=== PATIENT | female | born 1995 | race Caucasian/White ===

== ENCOUNTER 2022-04-19 13:17 | Emergency (ER) | payer OTHER, SELFPAY ==
--- NOTE | 2022-04-19 13:20 | ED.URI ---
HPI - URI/Sore Throat General Chief Complaint: Upper Respiratory Infection Stated Complaint: Sore Throat Time Seen by Provider: 04/19/22 13:19 Source: patient Mode of arrival: ambulatory Limitations: no limitations History of Present Illness HPI Narrative: Magi is a 26-year-old female patient presenting to the clinic today with complaints of sore throat, nasal congestion, and cough x1 day. She also reports low-grade fever. She is currently 5 weeks . MD elicited complaint: sore throat and nasal congestion Related Data Home Medications Medication Instructions Recorded Confirmed escitalopram oxalate 10 mg tablet 10 mg PO DAILY 04/19/22 04/19/22 levothyroxine 50 mcg tablet 50 mcg PO DAILY 04/19/22 04/19/22 metoprolol succinate 25 mg 25 mg PO DAILY 04/19/22 04/19/22 tablet,extended release 24 hr venlafaxine 150 mg 150 mg PO DAILY 04/19/22 04/19/22 capsule,extended release 24 hr Allergies Allergy/AdvReac Type Severity Reaction Status Date / Time No Known Allergies Allergy Verified 04/19/22 13:25 Review of Systems Review of Systems: Pertinent positives per HPI. Patient denies any rash, headache, visual changes, dizziness, shortness of breath, chest pain, palpitations, nausea, vomiting, diarrhea, constipation, abdominal pain, or any urinary issues. PMFSH Comments At the time of my signature, I reviewed and agree with the nursing past medical, surgical, social, and family history. There is no relevant family history pertinent to the patient complaint. Exam Narrative: General: Well-developed, well nourished, in no apparent distress Head: Normocephalic, atraumatic Eyes: Pupils equally round and reactive to light bilaterally, EOM intact, sclera and conjunctive clear, no discharge, lids normal Ears: TMs intact and clear, ear canals clear, no drainage, grossly hearing normal. Nose: Nares patent, clear nasal discharge, no inflammation, no sinus tenderness. Mouth: Oral pharynx without lesions or masses, good dentition, MMM. Oropharynx red with bilateral tonsillar swelling with exudate Neck: Supple, trachea midline, enlargement of anterior cervical nodes, no thyroid masses or goiter palpable. Cardio: Regular rate and rhythm, s1 and s2 normal, no murmur appreciated. Resp: Clear to auscultation bilaterally, no rhonchi, rales, wheezing or rubs Course Course Emergency Course: Portions of this record may have been created with voice recognition software. Level of Care: Express Care Visit Vital Signs Vital signs: Vital Signs Temperature 36.4 C 04/19/22 13:30 Pulse Rate 122 H 04/19/22 13:30 Respiratory Rate 16 04/19/22 13:30 Blood Pressure 122/83 04/19/22 13:30 Pulse Oximetry 100 04/19/22 13:30 Oxygen Delivery Room Air 04/19/22 13:30 Temperature 36.4 C 04/19/22 13:30 Pulse Rate 122 H 04/19/22 13:30 Respiratory Rate 16 04/19/22 13:30 Blood Pressure 122/83 04/19/22 13:30 Pulse Oximetry 100 04/19/22 13:30 Oxygen Delivery Room Air 04/19/22 13:30 Vital signs reviewed MDM - URI/Sore Throat MDM Narrative Medical decision making narrative: At the time of visit patient is resting comfortably on the exam table. Strep screen was obtained and was positive in the clinic today. Prescription for amoxicillin was sent to the pharmacy and supportive measures were discussed with the patient she voiced understanding of discharge instructions and agrees to the treatment plan. Differential Diagnosis Differential diagnosis: Likely upper respiratory infection, otitis media, sinusitis, viral infection, bronchitis, influenza, pharyngitis and other (COVID) Lab Data Labs: Strep Screen Positive Group A Strep *(Reference Range: Negative)* Discharge Plan Discharge Clinical Impression: Strep pharyngitis Patient Disposition: Home, Self-Care Condition: Stable Instructions: Antibiotic Form, Strep Throat (ED) Ricky
[2022-04-19 13:30] VITALS: BP 122/83; PULSE 122; RESP 16; TEMP 36.4; O2SAT 100
== END 2022-04-19 14:15 | disposition home or self-care (01) ==
PROVIDERS: Emergency Provider Nurse Practitioner Family
DX: J02.0 Streptococcal pharyngitis (principal); I10 Essential (primary) hypertension; E03.9 Hypothyroidism, unspecified; F41.9 Anxiety disorder, unspecified; F32.A Depression, unspecified
CPT/HCPCS: 87880; 99203; G0463

== ENCOUNTER 2022-05-04 18:48 | Emergency (ER) | payer OTHER, SELFPAY ==
[2022-05-04 19:00] VITALS: BP 135/73; PULSE 98; RESP 18; TEMP 36.3; O2SAT 100
--- NOTE | 2022-05-04 19:12 | ED.URI ---
HPI - URI/Sore Throat General Chief Complaint: Upper Respiratory Infection Stated Complaint: sorethroat Source: patient Mode of arrival: ambulatory Limitations: no limitations History of Present Illness HPI Narrative: 26-year-old female presents to [facility] complains of sore throat for the past 2 days. 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 Patient was evaluated here on 04/19/2022 and was diagnosed with strep throat at that time and was prescribed 10 days of amoxicillin. Patient reports that her symptoms resolved and then quickly returned. Patient is currently 7 and half weeks . Patient denies abdominal cramping or vaginal bleeding. Patient has been taking [id number] Tylenol and completing warm saltwater gargles with little relief MD elicited complaint: sore throat Onset (ago): day(s) (2) Severity: mild Able to tolerate fluids by mouth: Yes Exacerbating factors: swallowing Relieving factors: nothing Context: sick contacts Associated symptoms: denies other symptoms Treatments prior to arrival: acetaminophen Related Data Home Medications Medication Instructions Recorded Confirmed escitalopram oxalate 10 mg tablet 10 mg PO DAILY 04/19/22 05/04/22 levothyroxine 50 mcg tablet 50 mcg PO DAILY 04/19/22 05/04/22 metoprolol succinate 25 mg 25 mg PO DAILY 04/19/22 05/04/22 tablet,extended release 24 hr Allergies Allergy/AdvReac Type Severity Reaction Status Date / Time No Known Allergies Allergy Verified 04/19/22 13:25 Review of Systems Constitutional: Constitutional: Denies chills, Denies fatigue, Denies fever(s) and Denies weakness ENT: Denies vertigo, Denies dizziness, Denies epistaxis, Denies nasal congestion and Reports sore throat Cardiovascular: Cardiovascular: Denies chest pain Respiratory: Respiratory: Denies cough, Denies dyspnea and Denies wheezing Gastrointestinal: Gastrointestinal: Denies diarrhea, Denies nausea and Denies vomiting Integumentary/Breasts: Skin/Breast: Denies rash Allergic/Immunologic: Allergic/Immunologic: Denies lip swelling, Denies throat swelling, Denies tongue swelling and Denies wheezing PMFSH Comments At time of signature, I agree with nursing past medical, surgical, social and family history. There is no relevant family history pertinent to the presenting complaint. Exam Const: General: healthy appearing and no acute distress Nutritional Appearance: well nourished Orientation/consciousness: patient oriented x3 Limitations: no limitations HENMT: Head: normal to inspection Ears: external ears normal, TM's normal bilaterally and EAC's normal Face/Nose/Sinus: Normal external nose present Face and sinus: normal facial exam Mouth: Yes Normal oral and palatal mucosa present Teeth and gingiva: dentition normal Throat: uvula midline Other: Mild erythema and swelling noted to bilateral tonsils. There is no exudate or peritonsillar abscess Eyes: Conjunctivae: conjunctivae normal Neck: Neck: normal visual inspection Resp: Effort & Inspection: normal respiratory effort and not labored Auscultation: clear to auscultation bilaterally, no crackles, no rales, no rhonchi and no wheezes Cardio: Rate: regular rate Rhythm: regular rhythm Heart sounds: no murmurs Skin: General skin exam: normal color Rashes: no rashes Neuro: General: patient oriented x3 Speech: normal speech Gait exam (Neuro): Normal gait present Psych: Affect: normal affect Attitude: cooperative Course Course Level of Care: Express Care Visit Vital Signs Vital signs: Vital Signs Temperature 36.3 C L 05/04/22 19:00 Pulse Rate 98 05/04/22 19:00 Respiratory Rate 18 05/04/22 19:00 Blood Pressure 135/73 05/04/22 19:00 Pulse Oximetry 100 05/04/22 19:00 Oxygen Delivery Room Air 05/04/22 19:00 Temperature 36.3 C L 05/04/22 19:00 Pulse Rate 98 05/04/22 19:00 Respiratory Rate 18 05/04/22 19:00 Blood
== END 2022-05-04 19:24 | disposition home or self-care (01) ==
PROVIDERS: Emergency Provider Nurse Practitioner Family
DX: J02.0 Streptococcal pharyngitis (principal); I10 Essential (primary) hypertension; E03.9 Hypothyroidism, unspecified; F41.9 Anxiety disorder, unspecified; F32.A Depression, unspecified
CPT/HCPCS: 87880; 99213; G0463

== ENCOUNTER 2023-01-16 13:00 | Observation (INO) | payer OTHER, SELFPAY ==
[2023-01-16] VITALS (16 sets, daily range): BP systolic 116–128; BP diastolic 73–89; PULSE 70–114; O2SAT 86–100
--- NOTE | 2023-01-16 13:18 | PC.NURSE ---
1315: RN called OB. Dr. Smith ordered LR @125 ml/hr, IV zofran, and labs.
[2023-01-16] MEDS: ONDANSETRON INJ 4 MG/2 ML VIAL IV PUSH (14:10)
[2023-01-16] MEDS: LACTATED RINGERS 1,000 ML 125 ML IV CONT (14:12)
[2023-01-16 14:18] LABS: Hematocrit 41.7 % (37.0-47.0); Hemoglobin 13.4 g/dL (12.0-15.0); Mean Corpuscular HGB Conc 32.1 g/dl (32-36); Mean Corpuscular Hemoglobin 28.8 pg (26-34); Mean Corpuscular Volume 89.7 fl (80-100); Mean Platelet Volume 9.9 fl (7.4-10.4); Platelet Count Result 270 k/mm3 (150-375); Red Blood Count 4.65 M/mm3 (4.2-5.4); Red Cell Distribution Width 12.8 % (11.5-14.5); White Blood Count 8.3 K/mm3 (4.5-10.0)
[2023-01-16 15:08] LABS: Alanine Aminotransferase 21 U/L (6-35); Albumin Level 4.2 g/dL (3.5-5.1); Alkaline Phosphatase 41 U/L (38-126); Anion Gap 8 mmol/L (8-16); Aspartate Amino Transferase 25 U/L (14-36); Bilirubin,Total 0.5 mg/dL (0.2-1.3); Blood Urea Nitrogen 7 mg/dL (7-17); Carbon Dioxide 25 mmol/L (22-30); Chloride 102 mmol/L (98-107); Estimated Glomerular Filt Rate > 60; Glucose 87 mg/dL (65-110); Potassium 3.9 mmol/L (3.4-5.0); Sodium 135 mmol/L (137-145)
--- NOTE | 2023-01-16 16:38 | OBADM ---
This patient, Magi Crawford, admitted to the OB room OB Post 117 for observation. Patient/family oriented to hospital policies and general routines including ID bracelet, bed and alarms, visiting hours, pain management, procedures, bathroom and other care routines, personal items, smoking policy, room service/diet, and visiting hours. Patient/Family are encouraged to report perceived risks to care and to ask questions if they do not understand what they are told or what they should do.
--- NOTE | 2023-01-16 16:42 | PC.NURSE ---
1300: Patient arrived on unit vomiting. Patient stated she has not been able to keep any food or water down the past couple days and feels very nauseous and week.
--- NOTE | 2023-01-16 16:44 | PC.NURSE ---
1630: Patient states she feels better since receiving IV fluids and Zofran and has been able to keep her water and crackers down without feeling nauseous. Patient states she would like to go home. 1632: RN phone OB to report that patient has been able to keep food and water down and feels better after 800 ml of LR. OB stated he will send a prescription of PO Zofran to the pharmacy on file. Orders to discharge patient home with instruction on when to return to the hospital and how to take her Zofran at home.
--- NOTE | 2023-02-07 21:43 | PM.OBTRLD ---
OB - Triage/Final Diagnosis Visit Information Comments/Additional reasons for admission: I have assessed the risk for this patient, Magi Crawford, and determined that she would benefit from observation care. Evaluation Laboratory results: Laboratory Tests 01/16/23 01/16/23 13:27 14:35 WBC 8.3 RBC 4.65 Hgb 13.4 Hct 41.7 MCV 89.7 MCH 28.8 MCHC 32.1 RDW 12.8 Plt Count 270 MPV 9.9 Sodium 135 L Potassium 3.9 Chloride 102 Carbon Dioxide 25 Anion Gap 8 BUN 7 Creatinine 0.50 L Estim Creat Clear Calc Not Reportable Estimated GFR > 60 Glucose 87 Calcium 9.0 Total Bilirubin 0.5 AST 25 ALT 21 Alkaline Phosphatase 41 Total Protein 7.0 Albumin 4.2 Final Diagnosis (1) Nausea and vomiting: Code(s): R11.2 - Nausea with vomiting, unspecified Status: Acute
== END 2023-01-16 16:58 | disposition home or self-care (01) ==
PROVIDERS: Admitting Provider Obstetrics & Gynecology; Visit Provider Obstetrics & Gynecology
DX: O21.9 Vomiting of pregnancy, unspecified (principal); Z3A.00 Weeks of gestation of pregnancy not specified
CPT/HCPCS: 36415; 80053; 85027; 96374; G0378; G0379; J2405; J7120

== ENCOUNTER 2023-04-26 14:36 | Outpatient (CLI) | payer OTHER, SELFPAY ==
--- NOTE | 2023-04-29 08:38 | WPDHOLTEREM ---
Holter/Event Monitor Holter/Event Monitor Date of procedure: 04/26/23 Holter/Event Procedure: 24 Hr Holter Monitor Indications: Palpitations Conclusion: 1. 24 hour holter monitor on 04/26/23. 2. Underlying rhythm is sinus rhythm. HR range 60-171 bpm; average 95 bpm. HR at 171 bpm was at 17:22. 3. No premature supraventricular complexes. No supraventricular tachycardia. 4. No premature ventricular complexes. No ventricular tachycardia. 5. No sinoatrial or atrioventricular blocks. No significant pauses greater than 2 seconds. 6. No symptoms available for correlation.
== END 2023-04-26 14:37 | disposition home or self-care (01) ==
LOC: ANHCARD 14:39
PROVIDERS: Visit Provider Obstetrics & Gynecology
DX: R00.2 Palpitations (principal)
CPT/HCPCS: 93225; 93226

== ENCOUNTER 2023-08-18 16:42 | Outpatient (CLI) | payer OTHER, SELFPAY ==
[2023-08-18] VITALS (14 sets, daily range): BP systolic 108–136; BP diastolic 82–97; PULSE 78–135; BMI 31.8
[2023-08-18 17:32] LABS: Basophils Percent Auto 0.4 % (0.2-1.2); Eosinophils Absolute Auto 0.2 K/mm3 (0-0.3); Eosinophils Percent Auto 1.7 % (0-4.4); Hematocrit 35.4 % (37.0-47.0); Hemoglobin 11.5 g/dL (12.0-15.0); Immature Granulocyte Absolute 0.03 K/mm3 (0.00-0.031); Immature Granulocyte Percent A 0.3 % (0-0.5); Lymphocytes Absolute Auto 2.79 K/mm3 (0.9-3.2); Lymphocytes Percent Auto 27.1 % (18.3-44.2); Mean Corpuscular HGB Conc 32.5 g/dl (32-36); Mean Corpuscular Volume 89.4 fl (80-100); Mean Platelet Volume 11.2 fl (7.4-10.4); Monocytes Absolute Auto 0.7 K/mm3 (0.1-0.6); Monocytes Percent Auto 6.7 % (2.6-8.5); Neutrophils Absolute Auto 6.6 K/mm3 (1.3-6.7); Neutrophils Percent Auto 63.8 % (45.5-73.1); Platelet Count Result 209 k/mm3 (150-375); Red Blood Count 3.96 M/mm3 (4.2-5.4); Red Cell Distribution Width 13.3 % (11.5-14.5); White Blood Count 10.3 K/mm3 (4.5-10.0)
[2023-08-18 17:33] LABS: Appearance Urine Cloudy (Clear); Bacteria Urine None Seen /hpf; Bilirubin Urine Negative (Negative); Blood Urine Negative (Negative); Color Urine Yellow (Yellow); Glucose Urine UA Negative (Negative); Ketones Urine Negative (Negative); Leukocyte Esterase Ur Trace LEU/UL (Negative); Nitrate Urine Negative (Negative); Non Pathogenic Casts 0-2; Protein Urine 1+ mg/dL (Negative); RBC Urine 0-2 /hpf (0-2); Specific Grav Ur 1.013 (1.001-1.035); Squamous Epithelial Cell Urine Occasional /hpf (Few); Urobilinogen Urine 0.2 mg/dL (<2.0); WBC Urine 0-5 /hpf (0-3)
[2023-08-18 17:42] LABS: Alanine Aminotransferase 11 U/L (6-35); Albumin Level 3.7 g/dL (3.5-5.1); Alkaline Phosphatase 171 U/L (38-126); Anion Gap 5 mmol/L (4-12); Aspartate Amino Transferase 24 U/L (14-36); Bilirubin,Total 0.4 mg/dL (0.2-1.3); Blood Urea Nitrogen 4 mg/dL (7-17); Calcium 9.6 mg/dL (8.4-10.2); Carbon Dioxide 22 mmol/L (22-30); Chloride 106 mmol/L (98-107); Estimated Glomerular Filt Rate > 60; Glucose 85 mg/dL (65-110); Potassium 3.9 mmol/L (3.4-5.0); Sodium 133 mmol/L (137-145); Uric Acid 6.2 mg/dL (2.5-7.5)
[2023-08-18 17:45] LABS: Add Urine Microscopic? YES
[2023-08-18 18:24] LABS: Creatinine Urine 93.2 mg/dL; Total Protein Urine Random 27 mg/dL; Ur Ttl Prot Creatinine Ratio 0.29 mg/mg (0-0.20)
--- NOTE | 2023-08-18 18:24 | PC.NURSE ---
Dr. Mcgill notified of NST, lab results, and vital signs. Give 1g tylenol for headache.
[2023-08-18] MEDS: ACETAMINOPHEN 500 MG TABLET 1000 MG PO (19:07)
--- NOTE | 2023-08-18 20:05 | PC.NURSE ---
Dr. Mcgill called and updated on patient status. informed of patient stating that the Tylenol was not effectively managing her pain and that the patient is having acid reflux. MD also updated that patient stated that she has a history of migraines prior to . New orders received for PO Reglan.
[2023-08-18] MEDS: METOCLOPRAMIDE HCL 10 MG/10 ML SOLN UDC PO (20:28)
--- NOTE | 2023-08-18 21:05 | PC.NURSE ---
Patient states that she would like to go home. She states that the headache is still occurring and the acid reflux has not gotten better since eating and taking the Reglan. Patient states that she takes all of her medication at night and that acid reflux is a normal occurrence.
--- NOTE | 2023-08-18 21:12 | PC.NURSE ---
Called Dr. Mcgill to update that the patient is continuing to have a headache and acid reflux. Patient stated that she would like to go home because this is a normal occurrence at night for her. New orders received to discharge patient.
== END 2023-08-18 21:45 | disposition home or self-care (01) ==
LOC: ANHOBOP 16:45 → ANHLDR 16:45
PROVIDERS: Visit Provider Obstetrics & Gynecology
DX: O13.9 Gestational [pregnancy-induced] hypertension without significant proteinuria, unspecified trimester (principal); Z3A.00 Weeks of gestation of pregnancy not specified
CPT/HCPCS: 36415; 59025; 80053; 81001; 82570; 84156; 84550; 85025; 99199; A9270

== ENCOUNTER 2023-08-22 18:37 | Inpatient (IN) | payer OTHER, SELFPAY ==
[2023-08-22] VITALS (10 sets, daily range): BP systolic 106–137; BP diastolic 63–100; PULSE 84–115; BMI 31.8
--- NOTE | 2023-08-22 19:15 | PC.NURSE ---
FHT's 135, reactive. Discussed BP's with Dr Mcgill, will watch the next few and re-evaluate.
--- NOTE | 2023-08-22 19:36 | PC.NURSE ---
BP's reviewed per Dr Mcgill, IOL orders received.
--- NOTE | 2023-08-22 19:48 | PM.IMHP ---
H&P: HPI History of Present Illness Date/Time: 08/22/23 19:48 Chief Complaint: elevated BP, headache Narrative: Patient is a 28 Year old at 39w3d who presents for elevated blood pressures at home and a headache. She reports BPs at home of 120-130s/90s-100s. She has a mild headache that was relieved with tylenol. She denies vision changes, chest pain, dyspnea, RUQ pain or epigastric pain. She has no history of chronic HTN, however she did have elevated blood pressures in the office last week. She reports intermittently painful contractions, denies leakage of fluid, vaginal bleeding or decreased movement. Review of Systems Review of Systems: All systems reviewed & are unremarkable except as noted in HPI and below PMFSH Family History Family History (Updated 08/20/23 @ 13:40 by Elo Card RN) Father Chronic obstructive pulmonary disease Mitral valve prolapse Asthma Cerebrovascular accident Kidney disease Father No problems noted. Sibling Asthma Grandparent Diabetes mellitus Grandparent Diabetes mellitus Grandparent Kidney disease Social History Social History Substance use: never Spiritual care concerns: No Meds Home Medications and Allergies Home Medications Medication Instructions Recorded Confirmed Type levothyroxine 50 mcg tablet 50 mcg PO DAILY 04/19/22 08/20/23 History metoprolol succinate 25 mg 25 mg PO DAILY 04/19/22 08/20/23 History tablet,extended release 24 hr cetirizine 10 mg tablet (Zyrtec) 10 mg PO DAILY 08/20/23 08/20/23 History ondansetron 8 mg disintegrating 8 mg PO DAILY 08/20/23 08/20/23 History tablet vits no.126-ferrous fum 1 tablet PO DAILY 08/20/23 08/20/23 History 28 mg iron-folic acid 800 mcg tablet (Classic ) venlafaxine 37.5 mg 37.5 mg PO DAILY 08/20/23 08/20/23 History capsule,extended release 24 hr Allergies Allergy/AdvReac Type Severity Reaction Status Date / Time No Known Allergies Allergy Verified 08/20/23 13:25 Vital Signs Vital Signs - 24 hr 08/22/23 19:30 08/22/23 19:32 08/22/23 19:44 Pulse Rate 104 H 115 H 104 H Blood Pressure 135/97 H 131/95 H 137/100 H Exam Const: General: comfortable and no acute distress HENMT: Mouth: Yes moist mucous membranes Resp: Effort & Inspection: normal respiratory effort Cardio: Rate: regular rate Rhythm: regular rhythm Skin: General skin exam: normal color Extrem: General: normal to inspection Assessment and Plan Assessment and plan (1) Gestational hypertension: Code(s): O13.9 - Gestational [-induced] hypertension without significant proteinuria, unspecified trimester Status: Acute Assessment and Plan: - headache mild - BP 130s/80s-100s since admission - labs pending - recommend induction for gestational HTN at term - continue to monitor closely for severe features; if severe features present, will start MgSO4 for seizure prophylaxis Plan - cytotec per protocol until Bond score 8 - epidural as desired
[2023-08-22 20:23] LABS: Basophils Percent Auto 0.3 % (0.2-1.2); Eosinophils Absolute Auto 0.2 K/mm3 (0-0.3); Eosinophils Percent Auto 2.3 % (0-4.4); Hematocrit 35.3 % (37.0-47.0); Hemoglobin 11.7 g/dL (12.0-15.0); Immature Granulocyte Absolute 0.03 K/mm3 (0.00-0.031); Immature Granulocyte Percent A 0.3 % (0-0.5); Lymphocytes Absolute Auto 2.64 K/mm3 (0.9-3.2); Lymphocytes Percent Auto 27.1 % (18.3-44.2); Mean Corpuscular HGB Conc 33.1 g/dl (32-36); Mean Corpuscular Hemoglobin 29.5 pg (26-34); Mean Corpuscular Volume 89.1 fl (80-100); Mean Platelet Volume 11.3 fl (7.4-10.4); Monocytes Absolute Auto 0.7 K/mm3 (0.1-0.6); Monocytes Percent Auto 7.4 % (2.6-8.5); Neutrophils Absolute Auto 6.1 K/mm3 (1.3-6.7); Neutrophils Percent Auto 62.6 % (45.5-73.1); Platelet Count Result 196 k/mm3 (150-375); Red Blood Count 3.96 M/mm3 (4.2-5.4); Red Cell Distribution Width 13.7 % (11.5-14.5); White Blood Count 9.8 K/mm3 (4.5-10.0)
[2023-08-22] MEDS: miSOPROStol 25 MCG TABLET 50 MCG XX (20:28)
[2023-08-22 20:38] LABS: Alanine Aminotransferase 11 U/L (6-35); Albumin Level 3.8 g/dL (3.5-5.1); Alkaline Phosphatase 164 U/L (38-126); Anion Gap 6 mmol/L (4-12); Aspartate Amino Transferase 23 U/L (14-36); Bilirubin,Total 0.3 mg/dL (0.2-1.3); Blood Urea Nitrogen 5 mg/dL (7-17); Calcium 9.9 mg/dL (8.4-10.2); Carbon Dioxide 23 mmol/L (22-30); Chloride 106 mmol/L (98-107); Estimated Glomerular Filt Rate > 60; Glucose 90 mg/dL (65-110); Potassium 3.7 mmol/L (3.4-5.0); Sodium 135 mmol/L (137-145); Uric Acid 6.9 mg/dL (2.5-7.5)
[2023-08-22 21:13] LABS: HIV 1/2 Ab P24 Ag Result Negative (Negative)
--- NOTE | 2023-08-22 21:45 | WPDANESEPP ---
Anes - Eval Pre Procedure Procedure: labor epidural Date/Time: 08/22/23 21:45 Pre Op Diagnosis: Elevated BP Patient Data Age: 28 Gender: F Height: Weight: Last Vital Signs Pulse 107 H 08/22/23 21:30 BP 127/94 H 08/22/23 21:30 Allergies Allergy/AdvReac Type Severity Reaction Status Date / Time No Known Allergies Allergy Verified 08/20/23 13:25 Home Medications Medication Instructions Recorded Confirmed Type levothyroxine 50 mcg tablet 50 mcg PO DAILY 04/19/22 08/20/23 History metoprolol succinate 25 mg 25 mg PO DAILY 04/19/22 08/20/23 History tablet,extended release 24 hr cetirizine 10 mg tablet (Zyrtec) 10 mg PO DAILY 08/20/23 08/20/23 History ondansetron 8 mg disintegrating 8 mg PO DAILY 08/20/23 08/20/23 History tablet vits no.126-ferrous fum 1 tablet PO DAILY 08/20/23 08/20/23 History 28 mg iron-folic acid 800 mcg tablet (Classic ) venlafaxine 37.5 mg 37.5 mg PO DAILY 08/20/23 08/20/23 History capsule,extended release 24 hr Laboratory Tests 08/22/23 08/22/23 20:15 20:15 WBC 9.8 K/mm3 (4.5-10.0) RBC 3.96 L M/mm3 (4.2-5.4) Hgb 11.7 L g/dL (12.0-15.0) Hct 35.3 L % (37.0-47.0) MCV 89.1 fl (80-100) MCH 29.5 pg (26-34) MCHC 33.1 g/dl (32-36) RDW 13.7 % (11.5-14.5) Plt Count 196 k/mm3 (150-375) MPV 11.3 H fl (7.4-10.4) Immature Gran % (Auto) 0.3 % (0-0.5) Neut % (Auto) 62.6 % (45.5-73.1) Lymph % (Auto) 27.1 % (18.3-44.2) [place] % (Auto) 7.4 % (2.6-8.5) Eos % (Auto) 2.3 % (0-4.4) Baso % (Auto) 0.3 % (0.2-1.2) Lymph # (Auto) 2.64 K/mm3 (0.9-3.2) [place] # (Auto) 0.7 H K/mm3 (0.1-0.6) Eos # (Auto) 0.2 K/mm3 (0-0.3) Baso # (Auto) 0.0 K/mm3 (0.0-0.1) Abs Immat Gran (auto) 0.03 K/mm3 (0.00-0.031) Absolute Neuts (auto) 6.1 K/mm3 (1.3-6.7) Absolute Nucleated RBC 0.000 K/mm3 (0.0-0.012) Nucleated RBC % 0.0 % (0.0-0.2) Sodium 135 L mmol/L (137-145) Potassium 3.7 mmol/L (3.4-5.0) Chloride 106 mmol/L (98-107) Carbon Dioxide 23 mmol/L (22-30) Anion Gap 6 mmol/L (4-12) BUN 5 L mg/dL (7-17) Creatinine 0.50 L mg/dL (0.7-1.0) Estim Creat Clear Calc Not Reportable Estimated GFR > 60 (59 - ) Glucose 90 mg/dL (65-110) Uric Acid Cancelled 6.9 mg/dL (2.5-7.5) Calcium 9.9 mg/dL (8.4-10.2) Total Bilirubin 0.3 mg/dL (0.2-1.3) AST 23 U/L (14-36) ALT 11 U/L (6-35) Alkaline Phosphatase 164 H U/L (38-126) Total Protein 7.0 g/dL (6.3-8.2) Albumin 3.8 g/dL (3.5-5.1) RPR Pending HIV 1&2 Ab/P24 Ag 4thGn Negative (Negative) Blood Type A Positive Antibody Screen Negative Patient hx anesthesia problems: none Family hx anesthesia problems: none Results Review: All pre-operative results and documents have been reviewed as part of the pre-operative evaluation. [facility] Family History Family History Father Chronic obstructive pulmonary disease Mitral valve prolapse Asthma Cerebrovascular accident Kidney disease Father No problems noted. Sibling Asthma Grandparent Diabetes mellitus Grandparent Diabetes mellitus Grandparent Kidney disease Social History Social History Substance use: never Spiritual care concerns: No Exam Day of Procedure 08/22/23 21:45 Patient weight: obese Heart: regular rate and rhythm Lungs: normal air movement Airway: Mallampati scale Neurological: alert and oriented
--- NOTE | 2023-08-22 22:31 | LDADM ---
This patient, Magi Crawford, was admitted to Labor/Delivery/Recovery 106 on at 18:37. Plans for labor, pain management and were discussed with patient. Patient/family oriented to hospital policies and general routines including ID bracelet, bed and alarms, visiting hours, pain management, procedures, bathroom and other care routines, personal items, smoking policy, room service/diet and guest tray routines, security routines, and visiting hours. Patient/Family are encouraged to report perceived risks to care and to ask questions if they do not understand what they are told or what they should do. See OBIX for further documentation.
[2023-08-23] VITALS (217 sets, daily range): BP systolic 75–152; BP diastolic 42–129; PULSE 27–202; RESP 18; TEMP 36.2–36.7; O2SAT 73–100
[2023-08-23] MEDS: OXYTOCIN 30 UNITS/NS 500 ML 30 UNITS/500 ML BAG IV CONT (00:49)
[2023-08-23] MEDS: LACTATED RINGERS 1,000 ML 125 ML IV CONT ×3 (00:49→09:56)
[2023-08-23] MEDS: ONDANSETRON INJ 4 MG/2 ML VIAL IV PUSH ×2 (05:08→11:50)
[2023-08-23] MEDS: PHENYLEPHRINE 1,000 MCG/10 ML SYRINGE 100 MCG IV PUSH ×3 (05:39→05:57)
[2023-08-23] MEDS: OXYTOCIN 30 UNITS/NS 500 ML 30 UNITS/500 ML BAG 125 UNITS IV CONT (13:47)
--- NOTE | 2023-08-23 13:53 | PM.OBPRVD ---
OB - Vaginal Delivery Note Procedure Delivery date: 08/23/23 Induction method: AROM, Per Misoprostol Protocol and Per Pitocin Protocol Delivery monitor: External FHT and External Uterine Episiotomy description: None Laceration Description: Periurethral and Perineal - 2nd Degree Delivery repair: vicryl Specimen: No Quantitative Blood Loss (ml): 200 Anesthesia type: Epidural Disposition: Floor Complications: No immediate complications Baby Date of : 08/23/23 Time of : 13:24 Weeks of gestation at delivery: 39 Infant gender: Female Weight (pounds): 8 Weight (ounces): 4 Placenta delivery description: Spontaneous Cord Vessel Description: 3 Vessels score one minute: 8 score five minutes: 9
--- NOTE | 2023-08-23 16:45 | PC.NURSE ---
Patient transferred to post room #291 per wheelchair from labor and delivery. Support person present. Oriented to unit, room, information board, rooming in, admission packet and security measures. Patient verbalizes understanding.
[2023-08-23] MEDS: ACETAMINOPHEN 325 MG TABLET 650 MG PO (17:52)
[2023-08-23] MEDS: IBUPROFEN 600 MG TABLET PO ×2 (17:54→23:00)
[2023-08-24] MEDS: ACETAMINOPHEN 325 MG TABLET 650 MG PO ×4 (03:52→22:06)
[2023-08-24 04:44] VITALS: BP 98/67; PULSE 73; RESP 18; TEMP 36.9; O2SAT 97
[2023-08-24] MEDS: IBUPROFEN 600 MG TABLET PO ×4 (04:48→22:06)
[2023-08-24 07:08] LABS: Hematocrit 30.6 % (37.0-47.0); Hemoglobin 9.9 g/dL (12.0-15.0)
[2023-08-24] MEDS: SIMETHICONE 80 MG TAB.CHEW PO (07:25)
[2023-08-24] MEDS: DOCUSATE SODIUM 100 MG CAPSULE PO ×2 (07:25→16:01)
[2023-08-24 08:20] VITALS: BP 120/77; PULSE 68; RESP 16; TEMP 36.6; O2SAT 100
--- NOTE | 2023-08-24 08:35 | WPDANLDPN2 ---
Anes-Prog Note L&D Date/Time: 08/24/23 08:35 Neuro status: Neuro function grossly intact. Cardiovascular status: normal Respiratory status: normal Airway patency: baseline Mental status: baseline Post-Op hydration status: normal Vital Signs: Last Vital Signs Temp 36.9 C 08/24/23 04:44 Pulse 73 08/24/23 04:44 Resp 18 08/24/23 04:44 BP 98/67 L 08/24/23 04:44 Pulse Ox 97 08/24/23 04:44 O2 Del Method Room Air 08/23/23 19:30 Pain score (VAS): 0 I/O: Intake & Output 08/23/23 08/24/23 08/24/23 23:59 07:59 15:59 Intake Total 200 Output Total 300 Balance -100 Post-procedural complaints: none Patient feedback: Patient satisfied with anesthetic care.
--- NOTE | 2023-08-24 09:54 | PC.NURSE ---
[id number] Introductions were made, then consulted with patient to assess needs related to and Primary RN Christie is present placing infant [id number]. Mother led the conversation with her?plans to feed?her infant, the?experience so far with the first latch not hurting. Encouraged understanding of the benefits of skin to skin (demonstrating unwrapping infant and placing upright on her chest), stimulating with massage touch, changing positions to encourage wakefulness, how to watch for early feeding cues, responsive feeding, feeding on demand (aiming for 8-12 times in 24 hours, about every 2-3 hours), milk production, hand expression (mother is able to express drops and finger fed them to sleepy ) building/maintaining a milk supply, duration of feeding, signs of adequate intake/output and how to record on the feeding sheet. According to mother there was a latch attempt for over a hour last night and infant latched for 10 minutes and it hurt for the entire feeding. The mother's right nipple has a linear pinch injury across the middle of the nipple. Infant is sleepy and reluctant. We attempted to latch to both breast. was able to latch optimally, however, will not maintain and lets go of the breast. Mother works well with her with encouragement and education, however she is tearful, complains of pain and states she is tired and just wants the baby fed. Mother's feeding goal is to breast and bottle feed her . Infant was unable to maintain latch without pain to mother protecting the nipple with optimal positioning and latching. Blood sugar was obtained related to appearance of lethargy and resulted at 45mg/dl. Educated mother on pumping to protect her milk supply and suggested a nap after is supplemented per mother's request. parent hesitantly considered pumping at this time to protecting the milk supply per recommendation and parent declined. Reviewed comfort measures of healing with a warm, wet washcloth to rinse breast, then leave open to air-dry, good handwashing when or touching the breast/nipples to prevent infection. Rita RN on orientation with Christie, administered pain medication and gel pads to mother. RN demonstrated paced bottle feeding to the parents. Resources used for education were facilitated with the visual educational handouts. Inpatient/outpatient resources provided with feeding sheet. Parents were encouraged to take a nap and regroup with practicing later. Parents voiced understanding of information and will call if there is a request for assistance. Rita VIEYRA is present in the room.
[2023-08-24 13:38] VITALS: BP 125/78; PULSE 85; RESP 18; TEMP 36.5; O2SAT 99
[2023-08-24 14:25] LABS: Rapid Plasma Reagin Non-Reactive (NonReactive)
[2023-08-24 16:22] VITALS: BP 111/72; PULSE 76; RESP 16; TEMP 36.6; O2SAT 99
[2023-08-24] MEDS: POLYSACCHARIDE IRON COMPLEX 150 MG CAPSULE PO (17:13)
[2023-08-24 19:05] VITALS: BP 105/64; PULSE 78; RESP 18; TEMP 37.2
[2023-08-24 22:30] VITALS: BP 110/62; PULSE 75
[2023-08-25 04:40] VITALS: BP 104/63; PULSE 78
[2023-08-25] MEDS: ACETAMINOPHEN 325 MG TABLET 650 MG PO (04:40)
[2023-08-25] MEDS: IBUPROFEN 600 MG TABLET PO (04:40)
[2023-08-25] MEDS: POLYSACCHARIDE IRON COMPLEX 150 MG CAPSULE PO (07:52)
[2023-08-25] MEDS: DOCUSATE SODIUM 100 MG CAPSULE PO (07:52)
[2023-08-25 08:40] VITALS: BP 125/81; PULSE 74; RESP 18; TEMP 36.4; O2SAT 99
[2023-08-25 12:41] VITALS: BP 114/83; PULSE 92; RESP 16; TEMP 36.5; O2SAT 99
--- NOTE | 2023-08-25 12:50 | PC.NURSE ---
0905- Primary RN is present. Father of baby shared that infant recently received a bottle. Instructed parents to call with the next feeding and they voiced understanding. [id number] RN FRENCH was requested to the room. Upon entering the room, infant is [id number] demonstrating feeding cues. Mother works well with her with encouragement and education. Reviewed positioning and ear, shoulder, hip alignment, supporting the breast to facilitate a deep latch, asymmetrical latch (off-center), leading with the chin with a big, open, wide gape and body close to mother. latched optimally to the left breast in cross cradle position. Education given to the mother of how to visualize the suckling (with good rocking jaw motion), swallows (dropping of the lower jaw) and how to listen for drinking at the breast (the ka sound) which infant demonstrates. was able to maintain latch without pain to mother protecting the nipple with optimal positioning and latching. Reviewed comfort measures of healing with a warm, wet washcloth to rinse breast, then leave open to air-dry, good handwashing when or touching the breast/nipples to prevent infection. Mother voiced understanding of skin to skin, stimulating with massage touch, responsive feedings, hand expressed colostrum, talking to to encourage if it has been 2 -2.5 hours since the start of the last , to call if does not latch, or if there is discomfort with . Resources used for education were facilitated with the visual educational handouts/ tool/mom and baby guide. Inpatient/outpatient resources provided with feeding sheet, name written on the communication board, and the mom/baby guide. Mother voiced understanding of information, demonstrated learning and will call if there is a request for assistance. Reported to the Primary RN. [phone] RN FRENCH was called to the room for a consult. Reviewed the above information after [id number] and massage touch, talking to stimulate for wakefulness, burps to offer the other breast. Infant optimally latched to the right breast using the football positioning. demonstrated 1:1 suck:swallow many times. Encouraged mother to feeding about every 2-2.5 hours during the day while practicing [id number] as well with light and gentle touch with compressions when is to increase swallowing. Mother voiced understanding of the information. Reported to the Primary RN.
--- NOTE | 2023-08-25 12:55 | PM.OBDSVD ---
DS: Admitting Diagnosis Discharge Date 08/25/23 Admitting Diagnosis gestational hypertension, medical induction of labor DS: Discharge Diagnosis Discharge Diagnosis (1) Gestational hypertension: Code(s): O13.9 - Gestational [-induced] hypertension without significant proteinuria, unspecified trimester Status: Acute (2) (spontaneous vaginal delivery): Code(s): O80 - Encounter for full-term uncomplicated delivery Status: Acute OB - DS: Summary OB Procedures : PIH Mgmt OB Procedures Intrapartum: Spontaneous Vag Delivery OB Procedures: : None Peripartum Data Laceration Description: Periurethral and Perineal - 2nd Degree Episiotomy description: None Time Spent with Patient Time attestation: Total time spent providing and/or coordinating discharge services: DS: Data Data Completed and Pending Labs on day of discharge: Labs from last 24 hours 08/22/23 20:15 RPR Non-reactive Discharge Plan Discharge Attending physician on discharge: Tiago Mcgill Discharging Clinician: Tiago Mcgill Patient Disposition: Home, Self-Care Activity: may shower and pelvic rest Diet: as tolerated Patient Instructions: Antibiotic Form Stand Alone Forms: General Discharge Information Follow-up/Referrals: Tiago Mcgill MD [Physician] - 1 Week Discharge Medications: New docusate sodium 100 mg Capsule 100 mg PO BID PRN (Reason: Constipation) Qty: 60 0RF ibuprofen 600 mg Tablet 600 mg PO Q6H PRN (Reason: Cramping) Qty: 30 0RF Continued levothyroxine 50 mcg tablet 50 mcg PO DAILY metoprolol succinate 25 mg tablet extended release 24 hr 25 mg PO DAILY venlafaxine 37.5 mg capsule,extended release 24hr 37.5 mg PO DAILY cetirizine [Zyrtec] 10 mg Tablet 10 mg PO DAILY Classic 28 mg iron- 800 mcg Tablet 1 tablet PO DAILY Date of admission: 08/22/23 18:37 Primary Care Provider: Alberta Owens Admitting Provider: Tiago Mcgill Attending physician on admission: Tiago Mcgill Condition: Stable
--- NOTE | 2023-08-25 12:56 | PM.OBPNVD ---
OB - PN: Subj Subjective Date/time seen: 08/25/23 12:56 Interval history: PPD#2 Doing well, pain improving Voiding without issue Tolerating general diet Breast/bottle feeding Ready to discharge home OB - PN: Obj Data Labs 08/24/23 07:03 08/22/23 20:15 Labs: Laboratory Results - last 24 hr 08/22/23 20:15 RPR Non-reactive OB - PN A/P Plan day: 2 Plan: routine care and discharge home Time Spent With Patient Time: Total time spent is greater than 50% in coordination of care (as documented) at patient's floor/unit and/or counseling patient: Review of Systems Review of Systems: All systems reviewed & are unremarkable except as noted in HPI and below Exam Const: General: comfortable and no acute distress HENMT: Mouth: Yes moist mucous membranes Resp: Effort & Inspection: normal respiratory effort Cardio: Rate: regular rate Rhythm: regular rhythm Skin: General skin exam: normal color Extrem: General: normal to inspection
--- NOTE | 2023-08-25 12:59 | PC.NURSE ---
[id number] Purposefully rounded this morning to assess for needs. Patient is tearful, overwhelmed and is concerned about the pump flange fitting well. Parents encouraged to eat their breakfast, then place infant upright [id number] and call when they see feeding cues or not, if they need assistance or and assessment. Mother will call when she pumps to have the flange fit tested. [id number] Breast pump provided prior to meeting the LC. Mother has dirty pump parts and colostrum in the bottom of the bottle from the pumping session at 0000. Instructions given on cleaning, care, usage, that there should be no pain, pumping schedule for milk production, collection, and storage of human milk. Patient was assessed for correct placement, flange size (switched to 21mm), to pump for comfort and nipple stretching/stimulation for adequate milk production every 3 hours (8 times in 24 hours) 1-2 times at night. Parents are encouraged to record the pumping schedule on the feeding sheet.?There's no complaint of pain. Mother voiced understanding of the education shared along with mom/baby guide and the pump measurement, flange fit handout for additional resource information. Mother instructed to place [id number] upright on her chest when it has been close to 3 hours from the start of the last feeding with formula to practice latching. When RN FRENCH was leaving the room there was copious 10-15mls EBM in the pump bottle. Reported to the Primary RN. [id number] Encouraged understanding of the benefits of skin to skin (demonstrating unwrapping and placing upright on her chest), stimulating with massage touch, changing positions to encourage wakefulness, how to watch for early feeding cues, responsive feeding, feeding on demand (aiming for 8-12 times in 24 hours, about every 2-3 hours), milk production, building/maintaining a milk supply, duration of feeding, signs of adequate intake/output and how to record on the feeding sheet. Mother works well with her infant with encouragement and education. Reviewed positioning and ear, shoulder, hip alignment, supporting the breast to facilitate a deep latch, asymmetrical latch (off-center), leading with the chin with a big, open, wide gape and body close to mother. Infant latched optimally to the left, then the right breast in football position. Education given to the mother of how to visualize the suckling (with good rocking jaw motion), swallows (dropping of the lower jaw) and how to listen for drinking at the breast (the ka sound) which infant demonstrates occasionally. was able to maintain latch without pain to mother protecting the nipple with optimal positioning and latching. Reviewed comfort measures of healing with a warm, wet washcloth to rinse breast, then leave open to air-dry, good handwashing when or touching the breast/nipples to prevent infection. Mother voiced understanding of skin to skin, stimulating with massage touch, responsive feedings, hand expressed colostrum, talking to infant to encourage if it has been 2 -2.5 hours since the start of the last , to call if infant does not latch, or if there is discomfort with . Resources used for education were facilitated with the visual educational handouts/ tool/mom and baby guide. Inpatient/outpatient resources provided with feeding sheet, name written on the communication board to use with the call light, and the mom/baby guide. Parents voiced understanding of information, demonstrated learning and will call if there is a request for assistance. Reported to the Primary RN.
--- NOTE | 2023-08-25 13:47 | PC.NURSE ---
1343 - Purposefully rounded to assess for needs. Mother verbalizes she is able to independently latch infant with appropriate positioning and alignment. She denies any nipple discomfort and is responsively . is currently meeting outcomes for weight, output, jaundice, blood sugar and feeding frequencies of 8-12 times in 24 hours. Mother declines any additional assistance or education at this time. Primary RN present at the end of the consult.
== END 2023-08-25 13:45 | disposition home or self-care (01) | DRG 807 ==
LOC: ANHLDR 08-23 06:23 → ANHOB2 08-23 16:51
PROVIDERS: Obstetrics & Gynecology; Admitting Provider Obstetrics & Gynecology; Visit Provider Obstetrics & Gynecology
DX: O13.4 Gestational [pregnancy-induced] hypertension without significant proteinuria, complicating childbirth (principal); Z37.0 Single live birth; O70.1 Second degree perineal laceration during delivery; O77.0 Labor and delivery complicated by meconium in amniotic fluid; O69.81X0 Labor and delivery complicated by cord around neck, without compression, not applicable or unspecified; Z3A.39 39 weeks gestation of pregnancy
CPT/HCPCS: 36415; 80053; 84550; 85014; 85018; 85025; 86592; 86703; 86850; 86900; 86901; A9270; G0432; J2371; J2405; J2590; J7120